=== PATIENT | female | born 1985 | race Hispanic/Latino ===

== ENCOUNTER 2023-08-26 00:47 | Emergency (ER) | payer OTHER ==
[~2023-08-26] VITALS: Ht 157.5 cm; Wt 72.6 kg
[2023-08-26] MEDS ORDERED: IBUP-2070 PO (05:01)
[2023-08-26] MEDS: IBUPROFEN 600 MG TABLET PO ONE (05:23)
[2023-08-26 05:26] VITALS: BP 122/85; PULSE 88; RESP 18; O2SAT 100
== END 2023-08-26 05:24 | disposition home or self-care (01) ==
LOC: EDH 00:47
DX: S96.811A Strain of other specified muscles and tendons at ankle and foot level, right foot, initial encounter (principal); W01.0XXA Fall on same level from slipping, tripping and stumbling without subsequent striking against object, initial encounter; Y93.I9 Activity, other involving external motion; Y92.488 Other paved roadways as the place of occurrence of the external cause; Y99.8 Other external cause status
CPT/HCPCS: 73610